=== PATIENT | female | born 1975 | race Two or more races ===

== ENCOUNTER 2018-04-29 07:43 | Outpatient (CLI) | payer OTHER ==
[2018-04-29] MEDS ORDERED: GADOBUTROL 10 MMOL/10 ML VIAL ONE (07:56)
[2018-04-29] MEDS ORDERED: GADOBUTROL 10 MMOL/10 ML VIAL IVP ONE (08:56)
--- NOTE | 2018-04-29 14:18 | MRI Report ---
Reason: LEIOMYOMA OF UTERUS,UNSPECIFIED Procedure Date: 04/29/2018 Accession Number: [id number] / [id number] Procedure: MRI - Pelvis W/WO CPT Code: FULL RESULT: EXAM: MRI PELVIS WITHOUT AND WITH CONTRAST EXAM DATE: 04/29/2018 09:31 AM. CLINICAL HISTORY: Abdominal pain. Bulbous fibroid uterus seen on previous examinations. COMPARISON: None. Prior examinations are not available for comparison at the time of dictation. TECHNIQUE: Multiplanar, multisequence T1-weighted and fluid-sensitive sequences of the pelvis before and after administration of intravenous contrast. IV contrast: 10 cc Gadavist. Other: None. FINDINGS: Reproductive organs: Anteverted, measuring approximately 8.4 x 7.5 x 9.4 cm. Estimated volume is 308 cc. There are foci of susceptibility artifact in the uterine fundus as well as in the right anterior aspect of the uterine body, which may represent sequela of previous myomectomy. In the posterior aspect of the uterus, there is a an area of T2 signal hypointensity with small cystic components, measuring approximately 7.6 x 5.5 x 6.5 cm. The appearance suggests it may represent adenomyoma rather than a leiomyoma. No other discrete uterine masses are identified. Endometrium is displaced anteriorly by the posterior adenomyoma. Endometrial thickness is within normal limits, measuring 3 mm. There appears to be a low lying intrauterine device in the lower uterine segment (series 601, image 14). The lens may slightly protrude into the myometrium. Cervical nabothian cysts are demonstrated. Both ovaries are within normal limits. The right ovary demonstrates a 1.8 cm cyst/dominant follicle (series 901, image 21). Bladder: Decompressed. Bowel: No evidence of bowel obstruction or inflammation. Other: No pelvic adenopathy or free fluid. There is no evidence of bowel obstruction or inflammation in the visualized portions. There is midline rectus diastases/hernia. IMPRESSION: 1. Enlarged uterus with posterior mass demonstrating small cystic components, suggestive of adenomyoma. 2. No other discrete uterine masses are identified. There are foci of susceptibility artifact in the uterine fundus and right anterior uterine body, which could represent sequela of previous myomectomy. 3. Endometrium is displaced anteriorly by the posterior suspected adenomyoma. Intrauterine device appears low-lying, terminating in the lower uterine segment. The limbs of the IUD may slightly protrude into the myometrium. RADIA
== END 2018-04-29 07:44 | disposition home or self-care (01) ==
LOC: DI 07:43
PROVIDERS: ATTEND Registered Nurse Diabetes Educator
DX: N85.9 Noninflammatory disorder of uterus, unspecified (principal); N85.2 Hypertrophy of uterus; Z97.5 Presence of (intrauterine) contraceptive device
CPT/HCPCS: 72197; A9585

== ENCOUNTER 2018-06-25 09:13 | Outpatient (CLI) | payer OTHER | END 2018-06-25 09:14 | disposition home or self-care (01) | LOC: DI 09:13 | PROVIDERS: ATTEND Obstetrics & Gynecology | DX: Z82.49 Family history of ischemic heart disease and other diseases of the circulatory system (principal) | CPT/HCPCS: 93306 ==

== ENCOUNTER 2019-05-12 12:21 | Outpatient (CLI) | payer OTHER ==
--- NOTE | 2019-05-13 01:38 | Ultrasound Report ---
Reason: PELVIC AND PERINAL PAIN Procedure Date: 05/12/2019 Accession Number: [id number] / [id number] Procedure: US - Pelvic w/Transvaginal CPT Code: Final Report FULL RESULT: EXAM: PELVIC ULTRASOUND EXAM DATE: 05/12/2019 02:30 PM. CLINICAL HISTORY: PELVIC AND PERINAL PAIN. COMPARISON: None. TECHNIQUE: Realtime transabdominal pelvic scan performed to identify the uterus and adnexa and as an overview of other pelvic structures, followed by transvaginal scan to provide greater detail of the uterus and adnexa, with static image documentation. FINDINGS: Uterus: 11.2 x 8.4 x 9.2 cm, volume 452.2 cc. Anteverted position. Normal overall size and echotexture. Masses: Posterior intramural uterine fibroid measuring 8.1 x 7.0 x 7.4 cm. Endometrium: 5 mm. Normal. Cervix: Nabothian cyst. Right Ovary: 2.3 x 1.1 x 2.6 cm, volume 3.4 cc. Normal echotexture and blood flow. Left Ovary: 3.9 x 2.7 x 4.0 cm, volume 21.7 cc. A cystic lesion with diffuse low level internal echoes measuring 1.9 x 2.3 x 2.1 cm is seen. Free Fluid: None. Other: None. IMPRESSION: 1. Hypoechoic left ovarian cystic lesion likely represents an endometrioma. 2. Intramural uterine fibroid. RADIA
== END 2019-05-12 12:22 | disposition home or self-care (01) ==
LOC: DI 12:21
PROVIDERS: ATTEND Physician Assistant
DX: N83.202 Unspecified ovarian cyst, left side (principal); D25.1 Intramural leiomyoma of uterus
CPT/HCPCS: 76830; 76856

== ENCOUNTER 2019-10-20 16:54 | Emergency (ER) | payer OTHER ==
--- NOTE | 2019-10-20 18:05 | ED Physician Documentation ---
PD HPI FOCAL NEURO - Stated complaint Stated Complaint: BODY TINGLE - Chief complaint Chief Complaint: Neuro - History obtained from History obtained from: Patient - Additional information Additional information: She had a hysterectomy and excision of endometriosis 6 weeks ago. Perioperatively she was on gabapentin and some other pain medications. Stopped the gabapentin a couple of days ago. Since the surgery she has had this odd feeling like her skin was falling asleep and creepy crawly and electric zaps. She is not on a antidepressant. No history of electrolyte abnormalities. She is had borderline thyroid problems in the past. Review of Systems Ten Systems: 10 systems reviewed and negative Constitutional: denies: Fever, Chills Cardiac: denies: Chest pain / pressure, Palpitations Respiratory: denies: Dyspnea, Cough GI: denies: Abdominal Pain PD PAST MEDICAL HISTORY - Allergies Allergies/Adverse Reactions: Allergies Allergy/AdvReac Type Severity Reaction Status Date / Time Penicillins Allergy Rash Verified 10/20/19 17:02 PD ED PE NORMAL - Vitals Vital signs reviewed: Yes - General General: Alert and oriented X 3, No acute distress - HEENT HEENT: PERRL, EOMI - Neck Neck: Supple, no meningeal sign, No bony TTP - Cardiac Cardiac: RRR, No murmur - Respiratory Respiratory: No respiratory distress, Clear bilaterally - Abdomen Abdomen: Non tender - Extremities Extremities: No edema, No calf tenderness / cord, Other (Lower extremity reflexes are normal) - Neuro Neuro: Alert and oriented X 3, foil spooler 2-12 intact, No motor deficit, No sensory deficit - Psych Psych: Normal mood, Normal affect Results - Vitals Vitals: Vital Signs - 24 hr 10/20/19 10/20/19 16:57 18:53 Temperature 36.8 C 37.1 C Heart Rate 90 81 Respiratory 16 20 Rate Blood Pressure 145/90 H 118/69 O2 Saturation 99 99 Oxygen O2 Source Room air - Labs Labs: Laboratory Tests 10/20/19 10/20/19 10/20/19 18:15 18:15 18:15 WBC 9.3 RBC 5.40 Hgb 12.0 Hct 40.4 MCV 74.8 L MCH 22.2 L MCHC 29.7 L RDW 17.2 H Plt Count 375 MPV 9.3 Neut # (Auto) 5.3 Lymph # (Auto) 2.9 Moody # (Auto) 0.7 Eos # (Auto) 0.3 Baso # (Auto) 0.1 Absolute Nucleated RBC 0.00 Nucleated RBC % 0.0 Sodium 139 Potassium 3.9 Chloride 103 Carbon Dioxide 29 Anion Gap 7.0 BUN 16 Creatinine 0.9 Estimated GFR (MDRD) 69 L Glucose 88 Calcium 9.0 Magnesium 2.0 Total Bilirubin 0.5 AST 19 ALT 21 Alkaline Phosphatase 77 Total Protein 8.1 Albumin 3.7 Globulin 4.4 H Albumin/Globulin Ratio 0.8 L Lipase 17 L TSH 3.61 PD MEDICAL DECISION MAKING - ED course ED course: 44-year-old woman with body tingling and some other atypical symptoms that do not really fit anything other than gabapentin which she was advised to stop since it seems she no longer needs it anymore from perioperative period. Electrolytes and thyroid function were checked and unremarkable. Departure - Departure Disposition: 01 Home, Self Care Clinical Impression: Painful paresthesia Condition: Good Record reviewed to determine appropriate education?: Yes Instructions: ED Paraesthesias Comments: As Discussed, I suspect these symptoms are from the gabapentin use. I think you can safely stop it and expect the symptoms away. Return to worsening symptoms. Follow-up with your doctor in a week if not better. We did check lab panels including electrolytes, thyroid, kidney function, CBC. All were relatively unremarkable.
[2019-10-20 18:24] LABS: BASOPHILS # (AUTO) 0.1 10^3/uL (0.0-0.1); BASOPHILS % (AUTO) 0.8 %; EOSINOPHILS # (AUTO) 0.3 10^3/uL (0.0-0.7); EOSINOPHILS % (AUTO) 3.5 %; LYMPHOCYTES # (AUTO) 2.9 10^3/uL (1.5-3.5); LYMPHOCYTES % (AUTO) 31.3 %; MEAN CORPUSCULAR HEMOGLOBIN 22.2 pg (27.0-31.0); MEAN CORPUSCULAR HGB CONC 29.7 g/dL (32.0-36.0); MEAN CORPUSCULAR VOLUME 74.8 fL (81.0-99.0); MEAN PLATELET VOLUME 9.3 fL (7.9-10.8); MONOCYTES # (AUTO) 0.7 10^3/uL (0.0-1.0); MONOCYTES % (AUTO) 7.3 %; NEUTROPHILS # (AUTO) 5.3 10^3/uL (1.5-6.6); NEUTROPHILS % (AUTO) 56.6 %; PLT - PLATELET COUNT 375 10^3/uL (130-450); RED CELL DISTRIBUTION WIDTH 17.2 % (12.0-15.0); WHITE BLOOD COUNT 9.3 x10^3/uL (4.8-10.8)
[2019-10-20 18:37] LABS: ALBUMIN 3.7 g/dL (3.2-5.5); ALBUMIN/GLOBULIN RATIO 0.8 (1.0-2.2); BILIRUBIN,TOTAL 0.5 mg/dL (0.2-1.0); CREATININE 0.9 mg/dL (0.4-1.0); TOTAL PROTEIN 8.1 g/dL (6.7-8.2)
[2019-10-20 18:54] VITALS: BP 118/69
== END 2019-10-20 19:10 | disposition home or self-care (01) ==
LOC: ED 16:54
DX: R20.2 Paresthesia of skin (principal); R52 Pain, unspecified; Z90.710 Acquired absence of both cervix and uterus
CPT/HCPCS: 36415; 80053; 83690; 83735; 84443; 85025; 99283; 99284

== ENCOUNTER 2020-02-12 15:11 | Outpatient (CLI) | payer OTHER ==
--- NOTE | 2020-02-13 12:23 | Mammography Report ---
BILATERAL DIGITAL SCREENING MAMMOGRAM 3D/2D: 02/12/2020 CLINICAL: Routine screening. Comparison is made to exams dated: 01/24/2019 ultrasound and 10/14/2017 mammogram - [facility]. There are scattered fibroglandular elements in both breasts. There is an oval focal asymmetry in the right breast at 11 o'clock middle depth. This is more promin ent. No other significant masses, calcifications, or other findings are seen in either breast. IMPRESSION: INCOMPLETE: NEEDS ADDITIONAL IMAGING EVALUATION The oval focal asymmetry in the right breast is indeterminate. Additional views with possible ultras ound are recommended. This exam was interpreted at Station ID: [id number]. NOTE: For mammograms, a report in lay terms will be sent to the patient. Approximately 15% of breast malignancies will not be visualized mammographically. In the management of a palpable breast mass, a negative mammogram must not discourage biopsy of a clinically suspicious lesion. Electronically Signed By: Aislinn buchanan/penrad:02/12/2020 16:08:21 ACR BI-RADS Category 0: Incomplete 3340F PARENCHYMAL PATTERN: (A) - The breast(s) demonstrate(s) scattered fibroglandular densities. BI-RADS CATEGORY: (0) - 0 Mammo and US [id number] Immediate follow-up LATERALITY: (B)
== END 2020-02-12 15:12 | disposition home or self-care (01) ==
LOC: DI.N 15:11
DX: Z12.31 Encounter for screening mammogram for malignant neoplasm of breast (principal); R92.8 Other abnormal and inconclusive findings on diagnostic imaging of breast
CPT/HCPCS: 77067

== ENCOUNTER 2020-03-18 11:21 | Outpatient (CLI) | payer OTHER ==
--- NOTE | 2020-03-18 16:42 | Mammography Report ---
UNILATERAL RIGHT DIGITAL DIAGNOSTIC MAMMOGRAM 3D/2D: 03/18/2020 CLINICAL: Patient returns today to evaluate a focal asymmetry in the right breast. Comparison is made to exams dated: 02/12/2020 mammogram - [facility], 01/24/2019 [facility], and 10/14/2017 mammogram - [facility]. There are scattered fibroglandular eleme nts in right breast. Redemonstration of previously described oval focal asymmetry in the right breast at 11 o'clock middle depth. This is less prominent and decreased in size. No other significant masses or calcifications are seen in the breast. IMPRESSION: INCOMPLETE: NEEDS ADDITIONAL IMAGING EVALUATION The oval focal asymmetry in the right breast resembles a cyst or a lymph node and is indeterminate. An ultrasound is recommended for further evaluation and is scheduled to immediately follow this exam ination. This exam was interpreted at Station ID: [id number]. NOTE: For mammograms, a report in lay terms will be sent to the patient. Approximately 15% of breast malignancies will not be visualized mammographically. In the management of a palpable breast mass, a negative mammogram must not discourage biopsy of a clinically suspicious lesion. Electronically Signed By: Benjamin Bruce M.D. aty/:03/18/2020 13:40:08 ACR BI-RADS Category 0: Incomplete 3340F PARENCHYMAL PATTERN: (A) - The breast(s) demonstrate(s) scattered fibroglandular densities. BI-RADS CATEGORY: (0) - 0 Ultrasound [id number] Immediate follow-up LATERALITY: (R)
--- NOTE | 2020-03-18 16:42 | Ultrasound Report ---
LIMITED ULTRASOUND OF RIGHT BREAST: 03/18/2020 CLINICAL: Patient returns today to evaluate a density in the right breast. Comparison is made to exams dated: 03/18/2020 mammogram, 02/12/2020 mammogram - [facility], 01/24/2019 ultrasound, 01/24/2019 mammogram, and 10/14/2017 mammogram - [facility] . Real-time ultrasound of the right breast 9-11 o'clock region was performed. Pollack scale images of the real-time examination were reviewed. There were no sonographic abnormalities seen in the middle to posterior depth of the right breast upp er outer quadrant. During real time imaging a few small, scattered intramammary lymph nodes were inci dentally noted demonstrating normal reniform shape and morphology. IMPRESSION: PROBABLY BENIGN No sonographic abnormalities seen in the right breast to correlate with the oval focal asymmetry seen in the middle depth of the upper outer quadrant of the right breast which may represent a few incide ntally noted normal lymph nodes. This is probably benign. A follow-up right mammogram with possible right ultrasound in 6 months is recommended to demonstrate stability. Findings and recommendations were conveyed to the patient during today's evaluation. This exam was interpreted at Station ID: [id number]. Electronically Signed By: Benjamin Bruce M.D. aty/:03/18/2020 13:47:08 Ultrasound BI-RADS: 3 Probably benign BI-RADS CATEGORY: (3) - 3 Mammo and US [id number] 6 month follow-up LATERALITY: (R)
== END 2020-03-18 11:22 | disposition home or self-care (01) ==
LOC: DI 11:21
PROVIDERS: ATTEND Nurse Practitioner Family
DX: R92.8 Other abnormal and inconclusive findings on diagnostic imaging of breast (principal)

== ENCOUNTER 2020-07-23 14:46 | Outpatient (CLI) | payer OTHER ==
[2020-07-23 15:37] VITALS: BP 105/72
--- NOTE | 2020-07-23 15:37 | SLEEP CARE CONSULTATION ---
Information from patient questionnaire entered by Cyndi Bustillos. I have reviewed and concur with the information entered by Cyndi Bustillos. This document represents the service I personally performed and the decisions made by me, Erika Quintanilla ARNP. History of Present Illness Service Date and Time: 07/23/2020 1446 Reason for Visit: New patient Chief Complaint: reports: Insomnia, Unrefreshed sleep, Snoring, Frequent awakenings at night Date of Onset: 1 year Usual bedtime: 10 pm Time it takes to fall asleep: about 45 minutes Snores at night: Yes Observed to quit breathing while asleep: No Sleeps alone due to snoring: No Number of times waking at night: 4 Reasons for waking at night: reports: Snoring, Other (unknown reasons). denies: Choking, Gasping for air Toss, Turn, or Twitch while sleeping: Yes Recalls having dreams: Yes Usually gets out of bed at: 6:45 am Feels refreshed in the morning: No Morning headache: No Sleepy or fatigued during the day: Yes Ever fallen asleep while driving: No Takes day naps: No Dreams during day naps: No Prior sleep studies: No Additional HPI information: I had the pleasure of seeing TEVIN ROJAS today regarding the possi bility of her having a sleep disorder. Her current complaints are frequent night awakenings, insomnia, snoring and unrefreshed sleep. She has loud snoring according to her . He has not told her she has any pause in breathing or any choking/gasping in her sleep. She has woke herself up snoring. She does not feel rested most days upon awakening. She does not feel rested most mornings. She was visiting her dentist who encouraged her to have a sleep study based upon their findings. She states she does not feel she has sleep apnea but is here per their request. She states she feels her memory is not real good but she feels her concentration issues are more from having multiple things going on in her life. She denies any family history of sleep disordered breathing or snoring. 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 Patient is and lives in [place]. Have you smoked in the past 12 months: No Alcohol use: No Caffeine use: Yes Caffeine amount and frequency: 2 cups once a day Family History Family history of sleep disordered breathing: No Allergies and Home Medications Drug allergies reviewed: Yes (penicillin) Home medication list reviewed: Yes Allergy and home medication list: Multivitamin Review of Systems Weight gain over past 5 years: 30 Cardiovascular: denies: high blood pressure Gastrointestinal: denies: heartburn Neurological: reports: disorientation. denies: headaches Psychiatric: denies: anxiety, depression, mood disorder Ear/Nose/Throat: denies: dry mouth/throat, tonsillectomy, wisdom teeth removed Endocrine: denies: thyroid disease Immunologic: denies: allergies to food or environment Physical Exam Blood Pressure: 105/72 Cuff size: wrist Heart Rate: 94 O2 Saturation: 99 Height: 5 ft 7 in Weight: 239 lb Body Mass Index: 37.4 BMI Classification: Obese Neck circumference: 17.5 (inches) Mouth and throat: narrow oropharynx Soft palate: long Hard palate: normal Uvula visualization: 25% Mallampati Class III Tongue: enlarged in size with teeth elise on lateral edges Tonsils: 1+ Neck: normal w/o lymphadenopathy or thyromegaly Heart: regular rate and rhythm Lungs: clear bilaterally Impression and Plan 1. Suspected Obstructive Sleep Apnea-Hypopnea Syndrome, as suggested by a history of loud and irregular snoring, frequent awakening during the night, unrefreshed sleep, cognitive impairment, and excessive daytime sleepiness. Narrow oropharynx and obesity are common predisposing factors for obstructive sleep apnea-hypopnea syndrome. I recommend proceeding to polysomnography to confirm the diagnosis and to assess severity. If the patient has significant sleep disordered breathing, a manual CPAP titration study will also be performed to find the optimal treatment pressure. I informed the patient of what the sleep studies involve and after some discussion, obtained agreement to proceed. The pathophysiology of obstructive sleep apnea-hypopnea syndrome was discussed with the patient and health risks of cardiovascular and cerebrovascular disease if not treated. AASM brochure for obstructive sleep apnea-hypopnea syndrome given and reviewed. Risks of drowsy driving discussed in detail and patient advised to avoid long distance driving and to tube puller at the first sign of drowsiness. Patient agreed to plan. * Schedule polysomnography +- manual CPAP titration study and return in 1-2 weeks after the study to discuss result and initiate therapy. * Avoid long distance driving or driving when feeling sleepy. * Avoid alcohol, sedative and muscle relaxant around bedtime. * Attempt to lose weight. * Review instructions provided by trained office staff on how to prepare for the sleep study. * Return for follow-up after sleep study completed. Counseling Topics: Weight loss health impact Visit Type: In Office Time Spent with Patient (minutes): 30 Provider Statement: I spent 100% of the Face to Face Visit with the patient with greater than 50% spent counseling the patient and coordination of care.
== END 2020-07-23 14:47 | disposition home or self-care (01) ==
LOC: SC 14:46
PROVIDERS: ATTEND Nurse Practitioner Family
DX: R06.83 Snoring (principal); G47.10 Hypersomnia, unspecified; G47.8 Other sleep disorders; R41.89 Other symptoms and signs involving cognitive functions and awareness; E66.9 Obesity, unspecified; Z68.37 Body mass index [BMI] 37.0-37.9, adult
CPT/HCPCS: 99203; 99212

== ENCOUNTER 2020-08-07 15:01 | Outpatient (CLI) | payer OTHER | END 2020-08-07 15:02 | disposition home or self-care (01) | LOC: SC 15:01 | PROVIDERS: ATTEND Nurse Practitioner Family | DX: G47.33 Obstructive sleep apnea (adult) (pediatric) (principal); R09.02 Hypoxemia; E66.9 Obesity, unspecified; Z68.37 Body mass index [BMI] 37.0-37.9, adult | CPT/HCPCS: 95806 ==

== ENCOUNTER 2020-08-21 15:55 | Outpatient (CLI) | payer OTHER ==
--- NOTE | 2020-08-21 16:29 | SLEEP CARE CONSULTATION ---
Information from patient questionnaire entered by Bob Tracy. I have reviewed and concur with the information entered by Bob Tracy. This document represents the service I personally performed and the decisions made by me, Erika Quintanilla ARNP. History of Present Illness Service Date and Time: 08/21/2020 1555 Initial [place] Sleepiness Scale score: 11 (in 2020) Current [place] Sleepiness Scale score: 9 Additional HPI information: TEVIN ROJAS returns with spouse for follow up and results of the recently performed home sleep study. I explained the pathophysiology behind obstructive sleep apnea. We then spent quite a bit of time discussing different treatment options. For mild obstructive sleep apnea, surgery and oral appliance are alternatives to nasal CPAP therapy but in moderate or severe cases, nasal CPAP is the most effective and reliable treatment. Because apnea is primarily in supine position, then positional management therapy could be effective. Methods discussed such as positioning with pillows, using a T-shirt with tennis balls in the back, and shown commercial products that have a pillow format on back to prevent supine sleep. I reviewed the impact of weight changes on sleep apnea and strongly recommended losing weight. After some discussion, the patient opted to go with the nasal CPAP therapy. Nasal autoCPAP set at 4-15 cmH20 will be ordered with rationale explained. A manual titration study will be ordered if unable to find optimal pressure with office adjustments. I explained how CPAP machine works with sample devices Respironics Dreamstation and ResEuroling [id number] and what to expect when using the machine. Using CPAP every night in order to get used to it was emphasized. Patient advised to put CPAP mask on before getting into bed so as not to fall asleep without CPAP. To assist acclimation to CPAP use, it could also be used for a short time during day while reading or watching TV. The patient was instructed to call the CPAP supplier to discuss any mechanical problem that may occur. If the mask given is uncomfortable or is difficult to keep on through the night even with adjustment, contact the CPAP supplier as many will replace with another mask style if notified before 30 days. If snoring or perceives is not getting enough air or too much air from the machine, notify this office. [facility] patient education PAP tips and Non Pap treatment pamphlets reviewed and given to patient. Patient does not drink alcohol. Patient was cautioned about risks of drowsy driving until sleepiness symptoms resolve. Sleep Study - Results Type of Sleep Study: Home sleep study Prior sleep studies: No Polysomnography/Home Sleep Study results: Physician Impression: The quality of the study is good. The length of the study is adequate (> 240 minutes). Please also see the tabulated and graphic data. 1. Obstructive Sleep Apnea-Hypopnea (ICD-10 G47.33), moderate, with an AHI of 17.1/hr and jarrett SaO2 of 74%. During the study, the patient had 77 apneas (77 obstructive, 0 central, 0 mixed) and 52 hypopneas. The longest episode lasted 77.5 seconds. The respiratory events occurred almost exclusively during supine sleep (supine AHI was 28.6 and non-supine, 2.13). 2. Hypoxemia (ICD-10 R09.02), moderate, with the lowest oxygen saturation of 74 % and 23.8 minutes with SaO2 under 90%. Baseline oxygen saturation was normal (Average oxygen saturation was 93%). Allergies and Home Medications Home medication list reviewed: Yes (no changes) Review of Systems Review of systems same as previous: Yes (no changes) Physical Exam Heart Rate: 86 O2 Saturation: 97 Height: 5 ft 7 in Weight: 237 lb Body Mass Index: 37.0 BMI Classification: Obese Impression and Plan 1. Obstructive Sleep Apnea-Hypopnea Syndrome, moderate, with lowest oxygen saturation of 74%. Obviously this is the cause of the patients symptoms of unrefreshed sleep, and excessive daytime sleepiness. Positive pressure therapy could benefit her overall health and reduce cardiovascular and cerebrovascular adverse events. As mentioned above, the patient will be started on nasal autoCPAP therapy with pressure set at 4-15 cmH2O. A manual titration study will be completed if unable to find optimal treatment pressure with office adjustments. Compliance guidelines also reviewed. A copy of compliance guidelines will be given for reference at check out. Because the apnea is more s evere supine, I instructed to avoid sleeping supine using pillow positioning until able to start CPAP use. 2. Hypoxemia, moderate, with the lowest oxygen saturation of 74 % and 23.8 minutes with SaO2 under 90%. Her baseline oxygen saturation was normal with an average oxygen saturation of 93%. * Nasal auto CPAP therapy, pressure at 4-15 cm H2O. * Attempt to lose weight. * Avoid alcohol consumption near bedtime. * Avoid supine sleep until using CPAP. * The patient is again cautioned about driving until sleepiness completely resolves. * Return one month after CPAP obtained. I will assess response to therapy and compliance at that time. Counseling Topics: Weight loss health impact Visit Type: In Office Time Spent with Patient (minutes): 25 Provider Statement: I spent 100% of the Face to Face Visit with the patient with greater than 50% spent counseling the patient and coordination of care.
== END 2020-08-21 15:56 | disposition home or self-care (01) ==
LOC: SC 15:55
PROVIDERS: ATTEND Nurse Practitioner Family
DX: G47.33 Obstructive sleep apnea (adult) (pediatric) (principal); R09.02 Hypoxemia; E66.9 Obesity, unspecified; Z68.37 Body mass index [BMI] 37.0-37.9, adult
CPT/HCPCS: 99212; 99213

== ENCOUNTER 2020-11-08 09:55 | Outpatient (CLI) | payer OTHER ==
[2020-11-08 10:21] VITALS: BP 109/74
--- NOTE | 2020-11-08 10:21 | SLEEP CARE CONSULTATION ---
Information from patient questionnaire entered by Jocelyn Guadalupe. I have reviewed and concur with the information entered by Jocelyn Guadalupe. This document represents the service I personally performed and the decisions made by me, Erika Quintanilla ARNP. History of Present Illness Service Date and Time: 11/08/2020 0955 Previous diagnosis: Moderate, Obstructive Sleep Apnea-Hypopnea Syndrome AHI: 17.1 Reason for follow up: first compliance Equipment type: CPAP Equipment obtained from: Other ([facility]; got initial supplies) Mask style: Nasal Backup mask available: No (will keep old mask when replaced) Last cushion change: 3 weeks Prior sleep studies: Yes Year and Where: 07/2020 [facility] Type of Sleep Study: Home sleep study HPI additional information: TEVIN ROJAS was diagnosed to have moderate, AHI 17.1, obstructive sleep apnea-hypopnea syndrome and returned today for CPAP therapy first compliance follow-up. Sleep Study - Results Type of Sleep Study: Home sleep study Prior sleep studies: No CPAP Compliance Data - Data Reviewed with Patient Average duration of nightly device use: 5 hours 33 minutes Compliance rate %: 73 Current pressure setting (cmH2O): 4-15 (median 9.1, avg 12.8, max 14.1) Average residual AHI: 0.9 Central apnea: .1 Obstructive apnea: .3 Hypopnea: .5 Subjective Missed days of use due to: reports: other (weird noise) Patient concerns: reports: condensation in mask/hose (one time), other (Headache, at first when she started, last 2 weeks has resolved). denies: aerophagia, mask discomfort, air blowing in eyes, mask leak noise, nasal congestion, dry mouth, nose, throat, epistaxis Observed to snore while using device: No Current pressure setting perceived as: comfortable On therapy, patient: reports: sleeping better, awakening more refreshed, being more awake and alert during the day, more rested overall. denies: drowsiness while driving Initial [place] Sleepiness Scale score: 11 (in 2020) Current [place] Sleepiness Scale score: 4 Allergies and Home Medications Home medication list reviewed: Yes (Nortriptyline, for nerve pain) Review of Systems Review of systems same as previous: Yes (no changes) Physical Exam Blood Pressure: 109/74 Cuff size: wrist Heart Rate: 89 O2 Saturation: 91 Height: 5 ft 7 in Weight: 244 lb Body Mass Index: 38.2 BMI Classification: Obese Impression and Plan 1. Obstructive Sleep Apnea-Hypopnea Syndrome, moderate, with fair treatment compliance and good apnea control. On CPAP therapy, the patient has better sleep quality and is more rested overall. Patient had minor to that she had some co ndensation in the mask that limited her ability to use it. She states it does not happen all the time and she was a little confused by it. I encouraged her to increase the temperature of her heated hose as this can reduce condensation if it becomes a nightly issue. Patient states when she first started with the CPAP she was getting headaches regularly but in the last 2 weeks she has not been experiencing any headaches after she wakes up in the morning. Patient states when she first started with the CPAP she was getting headaches regularly but in the last 2 weeks she has not been experiencing any headaches after she wakes up in the morning. Patient's apnea severity and rationale for treatment to reduce apnea, improve sleep quality and reduce cardiovascular and cerebrovascular events was reviewed. * Change auto CPAP pressure to 10-14 cmH2O * Notify me if snoring with mask or feeling that the pressure is too much or too little * Attempt to lose weight * Call this office if any problems using CPAP * Return for follow up in 1-2 months, or sooner if concerns arise Counseling Topics: Spare mask, Weight loss health impact Visit Type: In Office Time Spent with Patient (minutes): 21 Provider Statement: I spent 100% of the Face to Face Visit with the patient with greater than 50% spent counseling the patient and coordination of care.
== END 2020-11-08 09:56 | disposition home or self-care (01) ==
LOC: SC 09:55
PROVIDERS: ATTEND Nurse Practitioner Family
DX: G47.33 Obstructive sleep apnea (adult) (pediatric) (principal); E66.9 Obesity, unspecified; Z68.38 Body mass index [BMI] 38.0-38.9, adult
CPT/HCPCS: 99212; 99213

== ENCOUNTER 2020-11-14 12:36 | Outpatient (CLI) | payer OTHER ==
--- NOTE | 2020-11-15 07:46 | Mammography Report ---
UNILATERAL RIGHT DIGITAL DIAGNOSTIC MAMMOGRAM 3D/2D: 11/14/2020 CLINICAL: Patient returns for a 6 month follow up of the right breast. Comparison is made to exams dated: 03/18/2020 ultrasound, 03/18/2020 mammogram, 02/12/2020 mammogram - [facility], 01/24/2019 mammogram - [facility], 10/14/2018 mammogram - [facility], and 10/14/2017 mammogram - [facility]. There are scattered fibrogland ular elements in right breast. There is an oval focal asymmetry in the right breast at 11 o'clock middle depth. This is not signifi cantly changed and was not definitely seen on the prior ultrasound. No other significant masses or calcifications are seen in the breast. IMPRESSION: PROBABLY BENIGN The oval focal asymmetry in the right breast resembles a cyst or a lymph node and is probably benign. A follow-up mammogram and possible right ultrasound in 6 months is recommended to demonstrate stabili ty. This exam was interpreted at Station ID: [id number]. NOTE: For mammograms, a report in lay terms will be sent to the patient. Approximately 15% of breast malignancies will not be visualized mammographically. In the management of a palpable breast mass, a negative mammogram must not discourage biopsy of a clinically suspicious lesion. Electronically Signed By: Stanford Mendoza M.D. ar/:11/14/2020 13:06:26 ACR BI-RADS Category 3: Probably benign [id number] PARENCHYMAL PATTERN: (A) - The breast(s) demonstrate(s) scattered fibroglandular densities. BI-RADS CATEGORY: (3) - 3 Mammo and [place] [id number] 6 month follow-up LATERALITY: (B)
== END 2020-11-14 12:37 | disposition home or self-care (01) ==
LOC: DI 12:36
PROVIDERS: ATTEND Student in an Organized Health Care Education/Training Program
DX: R92.8 Other abnormal and inconclusive findings on diagnostic imaging of breast (principal)